=== PATIENT | male | born 1980 | race Caucasian/White ===

== ENCOUNTER 2020-10-04 08:42 | Emergency (ER) | payer OTHER ==
[2020-10-04 09:52] LABS: Urine Blood NEGATIVE (Negative); Urine Glucose NEGATIVE (Negative); Urine Protein NEGATIVE (NEG); Urine pH 5.5 (5.0-7.0)
[2020-10-04 10:04] LABS: Urine Bacteria NONE SEEN /HPF (NONE SEEN); Urine RBC NONE SEEN /HPF (NONE SEEN)
--- NOTE | 2020-10-04 10:15 | RAD REPORT ---
EXAM DESCRIPTION: US - Scrotum Testicles - 10/04/2020 9:50 am CLINICAL HISTORY: r/o torsion left side Pain and swelling COMPARISON: No comparisons FINDINGS: The right testicle 4.5 x 2.8 x 1.4 cm. No intratesticular masses or evidence of testicular torsion. The left testicle 3.4 x 2.7 x 1.7 cm. No intratesticular masses or evidence of testicular torsion. Both epididymides are normal in size and appearance. No pathologic fluid collections. IMPRESSION: Unremarkable study.
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
[2020-10-04 10:56] VITALS: BP 125/91; TEMP 98.4; O2SAT 97
== END 2020-10-04 10:39 | disposition home or self-care (01) ==
LOC: ER 08:42
DX: N50.812 Left testicular pain (principal); Z87.891 Personal history of nicotine dependence; F90.9 Attention-deficit hyperactivity disorder, unspecified type
CPT/HCPCS: 76870; 81003; 81015; 99281